=== PATIENT | female | born 2000 | race Two or more races ===

== ENCOUNTER 2022-08-17 12:31 | Emergency (ER) | payer MEDICAID, OTHER ==
[~2022-08-17] VITALS: Ht 170.2 cm; Wt 147.8 kg
[2022-08-17 15:00] VITALS: BP 119/72
[2022-08-17] MEDS ORDERED: KETOROLAC TROMETH 30 MG/ML 1ML VIAL IM ONE (15:30)
[2022-08-17] MEDS ORDERED: LIDO5PAD8 EX (15:35)
[2022-08-17] MEDS ORDERED: CYCL-839 PO (15:35)
[2022-08-17] MEDS ORDERED: IBUP600T28 PO (15:35)
== END 2022-08-17 16:13 | disposition home or self-care (01) ==
LOC: ER 12:31
DX: M54.41 Lumbago with sciatica, right side (principal)
CPT/HCPCS: 72100; 96372; 99283; J1885

== ENCOUNTER 2023-11-16 09:45 | Emergency (ER) | payer OTHER, MEDICAID ==
[~2023-11-16] VITALS: Ht 170.2 cm; Wt 145.0 kg
[~2023-11-16 09:45] MED LIST: CYCL-839 PO; IBUP1TAB5 PO; LIDO5PAD12 EX
[2023-11-16 10:12] VITALS: BP 139/93; PULSE 82; RESP 18; TEMP 98.2; O2SAT 96
[2023-11-16 10:46] LABS: Urine Bacteria FEW /hpf (None Seen); Urine Blood Negative /uL (Negative); Urine Color Yellow (Yellow); Urine Mucus FEW (None Seen); Urine Protein, UAD 1+ (Negative); Urine Specific Gravity 1.026 (1.001-1.035); Urine Urobilinogen Normal (Negative); Urine WBC 58 /hpf (0 - 5)
[2023-11-16 10:47] LABS: Urine Clarity Hazy (Clear)
[2023-11-16] MEDS ORDERED: IBUP-1456 PO (11:48)
[2023-11-16] MEDS ORDERED: BACDST PO (11:48)
== END 2023-11-16 12:05 | disposition home or self-care (01) ==
LOC: ER 09:45
DX: N83.202 Unspecified ovarian cyst, left side (principal); N83.201 Unspecified ovarian cyst, right side; N39.0 Urinary tract infection, site not specified; Z32.02 Encounter for pregnancy test, result negative; Z90.49 Acquired absence of other specified parts of digestive tract
CPT/HCPCS: 76830; 76856; 81001; 81025

== ENCOUNTER 2024-11-28 19:37 | Emergency (ER) | payer OTHER, MEDICAID ==
[~2024-11-28] VITALS: Ht 170.2 cm; Wt 166.4 kg
[~2024-11-28 19:37] MED LIST changes: +BACDST PO; +IBUP-1456 PO
--- NOTE | 2024-11-28 20:26 | ED.PDOC ---
History of Present Illness(SKN HPI Comments 24-year-old female presents to ER with complaints of bilateral feet swelling x3 hours. Patient is morbidly obese and notes that she started experiencing unprovoked swelling with associated numbness/tingling to bilateral feet 3 hours prior to arrival to ER. Notes that her symptoms have since significantly i mproved and denies any pain. Patient presents to ER ambulatory on arrival, steady gait, in no distress. Denies shortness of breath, calf pain, chest pain, fever, chills or any further symptoms/complaints Chief Complaint: Lower Extremity Time Seen by MD: 19:38 Primary Care Provider: ANN History of Present Illness: Nurses Notes, Medications, Allergies Allergies: Coded Allergies: NO KNOWN ALLERGIES (Unverified , 02/20/23) Home Meds Active Scripts Sulfamethoxazole W/Trimethopri (Bactrim Ds Tablet) 1 Tab Tb, 1 TAB PO BID for 7 Days, #14 TAB Prov:YAHIR RICHARDSON 11/16/23 Ibuprofen (Ibuprofen) 800 Mg Tab, 1 TAB PO TID, #30 TAB Prov:YAHIR RICHARDSON 11/16/23 Lidocaine (Lidocaine Patch 5%) 5 % Pad, 1 APPLIC EX DAILY PRN, #30 PATCH 0 Refills Prov:IRISH TAM [facility] [place] 08/17/22 Cyclobenzaprine Hcl (Cyclobenzaprine Hcl) 10 Mg Tab, 10 MG PO TID, #12 TAB 0 Refills Prov:[facility] [place] 08/17/22 Ibuprofen Micronized (Ibuprofen) 600 Mg Tab, 600 MG PO Q8HPRN PRN, #30 TAB 0 Refills Prov:[facility] [place] 08/17/22 Information Source: Patient Mode of Arrival: Ambulatory Past Medical History PAST MEDICAL HISTORY: Denies Surgical History: Cholecystectomy [employer] History: Ovarian Cysts Family History Family History: Unknown Social History Smoker: Non-Smoker Alcohol: Denies ETOH Use Drugs: Denies Drug Use Lives In: Home Constitutional: denies: chills, diaphoresis, fatigue, fever, malaise, sweats, weakness, others EENTM: denies: blurred vision, double vision, ear bleeding, ear discharge, ear drainage, ear pain, ear ringing, eye pain, eye redness, hearing loss, mouth pain, mouth swelling, nasal discharge, nose bleeding, nose congestion, nose pain, photophobia, tearing, throat pain, throat swelling, voice changes, others Respiratory: denies: cough, hemoptysis, orthopnea, SOB at rest, shortness of breath, SOB with excertion, stridor, wheezing, others Cardiovascular: denies: chest pain, dizzy spells, diaphoresis, Dyspnea on exertion, edema, irregular heart beat, left arm pain, lightheadedness, palpitations, PND, syncope, others Gastrointestinal: denies: abdomen distended, abdominal pain, blood streaked bowels, constipated, diarrhea, dysphagia, difficulty swallowing, hematemesis, melena, nausea, poor appetite, poor fluid intake, rectal bleeding, rectal pain, vomiting, others Genitourinary: denies: abnormal vagina bleeding, burning, dyspareunia, dysuria, flank pain, frequency, hematuria, incontinence, pain, , vagina d ischarge, urgency, others Neurological: denies: dizziness, fainting, headache, left sided numbness, left sided weakness, numbness, paresthesia, pre-existing deficit, right sided numbness, right sided weakness, seizure, speech problems, tingling, tremors, weakness, others Musculoskeletal: reports: others (As stated in HPI) Integumetry: reports: others (As stated in HPI) Allergic/Immunocompromised: denies: Difficulty Healing, Frequent Infections, Hives, Itching, others Hematologic/Lymphatic: denies: anemia, blood clots, easy bleeding, easy bruising, swollen glands, others Endocrine: denies: excessive hunger, excessive sweating, excessive thirst, excessive urination, flushing, intolerance to cold, intolerance to heat, unexplained weight gain, unexplained weight loss, others Psychiatric: denies: anxiety, bipolar disorder, depression, hopeless, panic disorder, schizophrenia, sleepless, suicidal, others Physical Exam General Appearance: No Apparent Distress, Obese HEENT: PERRL/EOMI Neck: Full Range of Motion, Non-Tender, Normal Respiratory: Chest Non-Tender, Lungs Clear, No Accessory Muscle Use, No Re spiratory Distress, Normal Breath Sounds Cardiovascular: No Murmur, No Gallop, Regular Rate/Rhythm Breast Exam: Deferred Gastrointestinal: NOT DONE Genitalia: Deferred Pelvic: Deferred Rectal: Deferred Extremities: No calf tenderness, Normal capillary refill, Normal range of motion, Pedal edema (Mild pitting edema noted to bilateral feet. No signs of infection noted. Pulses intact. Steady gait noted) Neurologic: Alert, manager environmental affairs II-XII nml as Tested, No Motor Deficits, Normal Affect, Normal Mood, No Sensory Deficits Cerebellar Function: Normal Reflexes: Normal Skin: Dry, Normal Color, Warm Peripheral Pulses: 2+ femoral (R), 2+ femoral (L), 2+ dorsalis pedis (R), 2+ dorsalis pedis (L), 2+ Radial (R), 2+ Radial (L), 2+ Brachial (R), 2+ Brachial (L) Lymphatic: No Adenopathy Was a procedure done? Was a procedure done?: No Sedation Sedation?: No Differential Diagnosis (INTG) Differential Diagnosis: Cellulitis, Other (Lymphedema, CHF, DVT) X-Ray, Labs, Meds, VS Vital Signs Date Time Temp Pulse Resp B/P (MAP) Pulse Ox O2 Delivery O2 Flow Rate FiO2 11/28/24 20:41 94 18 97 Room Air 11/28/24 20:41 98.8 94 18 130/83 (99) 97 98.8 11/28/24 19:38 97.8 105 16 148/71 95 97.8 Lab Test 11/28/24 20:06 Range/Units White Blood Count 9.5 4.4-10.8 10^3/uL Red Blood Count 4.79 4.0-5.20 10^6/uL Hemoglobin 14.8 12.2-16.2 g/dL Hematocrit 43.5 36.0-46.0 % Mean Corpuscular Volume 90.8 80.0-100.0 fL Mean Corpuscular Hemoglobin 30.8 28.0-32.0 pg Mean Corpuscular Hemoglobin Concent 34.0 32.0-36.0 g/dL Red Cell Distribution Width 13.6 11.8-14.3 % Platelet Count 286 140-450 10^3/uL Mean Platelet Volume 8.8 6.9-10.8 fL Neutrophils (%) (Auto) 57.2 37.0-80.0 % Lymphocytes (%) (Auto) 31.1 10.0-50.0 % Monocytes (%) (Auto) 9.6 0.0-12.0 % Eosinophils (%) (Auto) 1.5 0.0-7.0 % Basophils (%) (Auto) 0.6 0.0-2.0 % Neutrophils # (Auto) 5.5 1.6-8.6 10 ^3/uL Lymphocytes # (Auto) 3.0 0.4-5.4 10 ^3/uL Monocytes # (Auto) 0.9 0-1.3 10 ^3/uL Eosinophils # (Auto) 0.1 0-0.8 10 ^3/uL Basophils # (Auto) 0.1 0-0.2 10 ^3/uL Nucleated Red Blood Cells 0.0 % Sodium Level 143 136-145 mmol/L Potassium Level 3.6 3.5-5.1 mmol/L Chloride Level 110 H 98-107 mmol/L Carbon Dioxide Level 23 20-31 mmol/L Anion Gap 10 5-15 Blood Urea Nitrogen 10 9-23 mg/dL Creatinine 0.94 0.550-1.02 mg/dL Glomerular Filtration Rate Calc 86 >90 mL/min BUN/Creatinine Ratio 10.6 10.0-20.0 Serum Glucose 103 74-106 mg/dL Calcium Level 9.1 8.7-10.4 mg/dL B-Type Natriuretic Peptide 13.47 0-100 pg/mL CBC reviewed-unremarkable BMP reviewed without any significant abnormalities BNP - normal Patient had improvement in symptoms, neurovascularly intact and in no distress prior to discharge Advised on elevation Diet/lifestyle education discussed Advised to follow up with PCP in 1-2 days Patient verbalized understanding and agreeable with current plan of care Advised to return to ER immediately if symptoms worsen Time of 1ST Reevaluation: 20:30 Reevaluation 1ST: N/A Patient Education/Counseling: Diagnosis, Treatment, Prognosis, Need For Follow Up Family Education/Counseling: No Family Present SEPSIS Sepsis Screen Date sepsis recognized/suspect: Nov 28, 2024 Time Sepsis recognized/suspect: 1943 Recent Procedure: No On Antibiotic Therapy: No Respiratory Rate >20: No Heart Rate >90: Yes Temp<36 C (96.8 F) or >38.3 C: No SBP <90 or MAP <65 mmHG: No New Acute Mental Status Change: No Is the patient on CPAP, BIPAP,: No Vital Signs Date Time Temp Pulse Resp B/P (MAP) Pulse Ox O2 Delivery O2 Flow Rate FiO2 11/28/24 20:41 94 18 97 Room Air 11/28/24 20:41 98.8 94 18 130/83 (99) 97 98.8 11/28/24 19:38 97.8 105 16 148/71 95 97.8 Laboratory Tests Test 11/28/24 20:06 White Blood Count 9.5 10^3/uL (4.4-10.8) Departure 1 Departure Time of Disposition: 20:22 Impression: Primary Impression: Venous insufficiency of both lower extremities Additional Impression: Morbid obesity with BMI of 50.0-59.9, adult Disposition: 01 HOME / SELF CARE / HOMELESS Condition: Stable Discharged With: Self Critical Care Note Critical Care Time?: No Stability Stability form required: No Heart Score Heart Score: Heart Score Response (Comments) Value History N/A 0 EKG N/A 0 Age N/A 0 Risk Factors N/A 0 Troponin N/A 0 Total 0 LENARD HOLT Nov 28, 2024 20:26
[2024-11-28 20:40] LABS: Potassium 3.6 mmol/L (3.5-5.1); Sodium 143 mmol/L (136-145)
[2024-11-28 20:41] VITALS: BP 130/83; PULSE 94; RESP 18; TEMP 98.8; O2SAT 97
[2024-11-28 20:41] LABS: Anion Gap 10 (5-15); Carbon Dioxide 23 mmol/L (20-31); Hematocrit 43.5 % (36.0-46.0); Hemoglobin 14.8 g/dL (12.2-16.2); Mean Corpuscular Hemoglobin 30.8 pg (28.0-32.0); Mean Corpuscular Volume 90.8 fL (80.0-100.0); Nucleated Red Blood Cells % 0.0 %
[2024-11-28 20:42] LABS: Calcium 9.1 mg/dL (8.7-10.4)
[2024-11-28 20:47] LABS: BUN/Creatinine Ratio 10.6 (10.0-20.0); Blood Urea Nitrogen 10 mg/dL (9-23); Glucose 103 mg/dL (74-106)
[2024-11-28 21:05] LABS: Chloride 110 mmol/L (98-107)
== END 2024-11-28 21:10 | disposition home or self-care (01) ==
LOC: ER 19:37
DX: I87.2 Venous insufficiency (chronic) (peripheral) (principal); E66.01 Morbid (severe) obesity due to excess calories; Z68.43 Body mass index [BMI] 50.0-59.9, adult; Z90.49 Acquired absence of other specified parts of digestive tract; Z79.1 Long term (current) use of non-steroidal anti-inflammatories (NSAID); Z79.899 Other long term (current) drug therapy
CPT/HCPCS: 36415; 80048; 83880; 85025